=== PATIENT | male | born 2000 | race American Indian/Alaskan Native ===

== ENCOUNTER 2021-12-29 12:57 | Emergency (ER) | payer MEDICAID, OTHER ==
[2021-12-29 13:05] VITALS: BP 162/93
[2021-12-29] MEDS ORDERED: TETANUS/DIPHTHERIA/PERTUSSIS 0.5 ML SYRINGE IM ONE (13:17)
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
== END 2021-12-29 14:44 | disposition home or self-care (01) ==
LOC: ED 12:57
DX: S00.33XA Contusion of nose, initial encounter (principal); Y04.2XXA Assault by strike against or bumped into by another person, initial encounter; R04.0 Epistaxis; Z23 Encounter for immunization; Z71.85 Encounter for immunization safety counseling
CPT/HCPCS: 90471; 99282; 99284

== ENCOUNTER 2022-05-06 22:24 | Emergency (ER) | payer MEDICAID, OTHER ==
[2022-05-06] MEDS ORDERED: BACITRACIN ZINC OINT 1 PACKET TOP STA (23:32)
[2022-05-06] MEDS ORDERED: cephALEXin 250 MG CAPSULE PO STA (23:34)
--- NOTE | 2022-05-06 23:39 | ED Physician Documentation ---
PD HPI UPPER EXT INJURY - Stated complaint Stated Complaint: R FINGER INJ - Chief complaint Chief Complaint: Laceration - History obtained from History obtained from: Patient, Family - Additonal information Additional information: The patient comes to the emergency department chief complaint of right ring finger pain and swelling after injury. He states that 3 days ago, he smashed the end of his finger in a old ramp. He noticed that the skin had split open, but thought that it would heal on its own and decided not to seek medical attention. However, the fingers become increasingly swollen and the wound keeps bleeding and so he decided to come get it checked out. He is not sure when his last tetanus shot was. He describes moderate pain. No other complaints at this time. Review of Systems Ten Systems: 10 systems reviewed and negative Constitutional: reports: Reviewed and negative Eyes: reports: Reviewed and negative Ears: reports: Reviewed and negative Nose: reports: Reviewed and negative Throat: reports: Reviewed and negative Cardiac: reports: Reviewed and negative Respiratory: reports: Reviewed and negative GI: reports: Reviewed and negative : reports: Reviewed and negative Skin: reports: Laceration (s) Musculoskeletal: reports: Extremity pain, Extremity swelling Neurologic: reports: Reviewed and negative Psychiatric: reports: Reviewed and negative Endocrine: reports: Reviewed and negative Immunocompromised: reports: Reviewed and negative PD PAST MEDICAL HISTORY - Present Medications Home Medications: Ambulatory Orders Medication Instructions Recorded Confirmed cephALEXin [Keflex] 500 mg PO Q6H #28 cap 05/06/22 - Allergies Allergies/Adverse Reactions: Allergies Allergy/AdvReac Type Severity Reaction Status Date / Time No Known Drug Allergies Allergy Verified 05/06/22 22:35 PD ED PE NORMAL - Vitals Vital signs reviewed: Yes - General General: Alert and oriented X 3, No acute distress, Well developed/nourished - HEENT HEENT: Atraumatic, PERRL, EOMI, Moist mucous membranes - Neck Neck: Supple, no meningeal sign - Cardiac Cardiac: Strong equal pulses - Respiratory Respiratory: No respiratory distress - Derm Derm: Normal color, Warm and dry, No rash, Other (1.5 cm vertical laceration/skin tear over right ring finger tip and pad. No bony fragments in wound. No active bleeding. No nail or nailbed involvement) - Extremities Extremities: No deformity, Other (Moderate edema distal right ring finger. No deformity. Flexion to intact at DIP joint.) - Neuro Neuro: Alert and oriented X 3 - Psych Psych: Normal mood, Normal affect Results - Vitals Vitals: Vital Signs - 24 hr 05/06/22 05/06/22 22:29 23:59 Temperature 36.5 C Heart Rate 66 80 Respiratory 20 17 Rate Blood Pressure 150/91 H 136/80 H O2 Saturation 100 100 Oxygen O2 Source Room air - Rads (name of study) Right hand x-ray series Radiology: Final report received, EMP read indepedently, See rad report (Tuft fracture ring finger) PD MEDICAL DECISION MAKING - ED course Complexity details: reviewed results, re-evaluated patient, considered differential, d/w patient ED course: I discussed with the patient that his x-ray did demonstrate a tuft fracture. Unfortunately, because he has waited 3 days to come in, his laceration is no longer suturable. However, the area does not appear infected and so we will wash and dress the wound. Patient has been placed in a splint and started on antibiotics for open fracture. We have discussed the need for follow-up, continuing antibiotics prophylactically, and the usual indications for return and follow-up. Departure - Departure Disposition: 01 Home, Self Care Clinical Impression: Laceration, Open fracture of tuft of distal phalanx of finger Condition: Stable Instructions: ED Fx Finger Open Prescriptions: cephALEXin [Keflex] 500 mg PO Q6H #28 cap Comments: Unfortunately, you have broken the tip of the last bone of your finger into several small pieces. The good news is that these fractures tend to heal well with simple splinting. You are out of the window for repair of the overlying cut, as it has been more than 24 hours. Because this overlies a broken bone, you will also need to be on antibiotics to prevent infection from setting into the bone. 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 There is no evidence of infection of the flash around the cut at this time. Please continue to keep the wound clean and dry. You have been placed in a splint to help your fracture heal better. To help reduce the swelling, you should prop your hand up whenever possible and avoid letting it hang down, as this will worsen the swelling. You may also apply ice pack several times a day for 20 to 30 minutes at a time. Your tetanus shot was actually updated last year, so you will not need another one for the next 8-9 years. Please follow-up with your doctor to have your finger rechecked in a couple of weeks. You will need to wear the splint at least until then. Avoid any strenuous activities with the hand until the finger is out of the splint. Forms: Activity restrictions Discharge Date/Time: 05/07/22 00:00
--- NOTE | 2022-05-06 23:49 | XRAY Report ---
PROCEDURE: Finger(s) RT INDICATIONS: Injury TECHNIQUE: AP hand, 2 views of the fourth digit acquired. COMPARISON: None. FINDINGS: Bones: There is a mildly comminuted fracture of the fourth distal phalanx. No dislocations. Soft tissues: There is a soft tissue laceration of the distal fourth digit. No suspicious soft tissu e calcifications. IMPRESSION: 1. Mildly comminuted fracture of the fourth distal phalanx. Reviewed by: Chino Rivera MD on 05/06/2022 11:47 PM PDT Approved by: Chino Rivera MD on 05/06/2022 11:47 PM PDT Station ID: [id number]
[2022-05-06 23:59] VITALS: BP 136/80
== END 2022-05-07 | disposition home or self-care (01) ==
LOC: ED 22:24
DX: S62.634B Displaced fracture of distal phalanx of right ring finger, initial encounter for open fracture (principal); X58.XXXA Exposure to other specified factors, initial encounter
CPT/HCPCS: 73140; 99283; 99284; A9270

== ENCOUNTER 2023-11-20 09:41 | Emergency (ER) | payer MEDICAID ==
[2023-11-20 10:03] VITALS: BP 146/93; O2SAT 98
--- NOTE | 2023-11-20 11:33 | ED Physician Documentation ---
PD HPI HEENT - Stated complaint Stated Complaint: SORE THROAT - Chief complaint Chief Complaint: Heent - Additional information Additional information: 23 yo male reports he does not think he had childhood vaccines presents to ER for sore throat. Pt repots he has not been feeling weel for 2-3 days now and feels like his sore throat is not getting any better. He has taken Nyquil at night and has not had significant amount of relief with this. Patient is in no acute respiratory distress he is able to speak in full sentences. He reports at times he has more difficulty with breathing than he does normally at baseline denies any history of asthma or respiratory diseases. He says that he has been able to feel his forehead and thinks that he has been having fevers at home but has not taken his temperature. No nausea vomiting or diarrhea. PD PAST MEDICAL HISTORY - Past Medical History Past Medical History: No - Past Surgical History Past Surgical History: No - Present Medications Home Medications: Ambulatory Orders Medication Instructions Recorded Confirmed No Known Home Medications 11/20/23 11/20/23 - Allergies Allergies/Adverse Reactions: Allergies Allergy/AdvReac Type Severity Reaction Status Date / Time No Known Drug Allergies Allergy Verified 05/06/22 22:35 - Social History Does the pt smoke?: No Smoking Status: Never smoker PD ED PE NORMAL - Vitals Vital signs reviewed: Yes - General General: Alert and oriented X 3 - HEENT HEENT: Moist mucous membranes, Other (no throat swelling, tonsils 0, no exudate, pharyngeal erythema, no abscess) - Neck Neck: Thyroid normal - Cardiac Cardiac: RRR - Respiratory Respiratory: No respiratory distress, Clear bilaterally - Derm Derm: Normal color, Warm and dry - Neuro Neuro: Alert and oriented X 3 Eye Opening: Spontaneous Motor: Obeys Commands Verbal: Oriented GCS Score: 15 - Psych Psych: Normal mood Results - Vitals Vitals: Vital Signs - 24 hr 11/20/23 09:54 Temperature 36.7 C Heart Rate 58 L Respiratory 16 Rate Blood Pressure 146/93 H O2 Saturation 98 Oxygen O2 Source Room air - Labs Labs: Laboratory Tests 11/20/23 11/20/23 11:29 11:29 Nasal Adenovirus (PCR) NOT DETECTED Nasal B. parapertussis DNA (PCR) NOT DETECTED Nasal Coronavir 229E PCR NOT DETECTED Nasal Coronavir HKU1 PCR NOT DETECTED Nasal Coronavir NL63 PCR NOT DETECTED Nasal Coronavir OC43 PCR NOT DETECTED Nasal Enterovir/Rhinovir PCR NOT DETECTED Nasal Influenza B PCR NOT DETECTED Nasal Influenza A PCR NOT DETECTED Nasal Parainfluen 1 PCR NOT DETECTED Nasal Parainfluen 2 PCR NOT DETECTED Nasal Parainfluen 3 PCR NOT DETECTED Nasal Parainfluen 4 PCR NOT DETECTED Nasal RSV (PCR) NOT DETECTED Nasal B.pertussis DNA PCR NOT DETECTED Nasal C.pneumoniae (PCR) NOT DETECTED Parveen Human Metapneumo PCR NOT DETECTED Nasal M.pneumoniae (PCR) NOT DETECTED Nasal SARS-CoV-2 (PCR) DETECTED A Group A Strep Rapid Negative PD Medical Decision Making - ED course ED course: No history of immunocompromise. Nontoxic appearance. Patient euvolemic with no trismus. No airway compromise. No change in voice, exudates, enlarged lymph nodes. Able to tolerate PO. 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 Patient was found to have COVID-19 he was called and notified about these results was given return precautions and instructions on how to care for self at home and how long to isolate for. Departure - Departure Disposition: Home, Self Care Clinical Impression: Sore throat (viral) Condition: Good Instructions: Sore Throats Self Care, Cold Virus Comments: Thank you for trusting us with your care we have completed a rapid group A strep which was negative for strep. We have sent your throat cultures for further evaluation to the lab we will call you in the next 3 to 4 days if this comes back positive. At home alternate between Tylenol and ibuprofen for pain and discomfort you can have up to 1000 mg of Tylenol every 8 hours and up to 600 mg of ibuprofen every 6 hours. Some people like liquid children's ibuprofen to gargle with to help with throat pain and swelling just make sure that you are not doing that on top of the ibuprofen pills and you are keeping track of the dosage and the amount of ibuprofen you are taking. You can also do things like salt water gargle rinses and honey to help with your sore throat. We will call you if your respiratory panel comes back with any positive viruses but most likely you are experiencing some sort of upper respiratory infection virus which will take time to resolve and clear up on its own. Please come back to the emergency department for having any worsening shortness of breath, difficulty breathing, worsening throat pain over the next couple days despite the Tylenol and ibuprofen, chest pain, or any other concerning symptoms. Wishing you a speedy recovery Forms: PCP List Discharge Date/Time: 11/20/23 12:23
[2023-11-20] MEDS: IBUPROFEN 200 MG/10 ML UDC PO STA (11:46)
[2023-11-20] MEDS: ACETAMINOPHEN 325 MG TABLET PO STA (11:47)
[2023-11-20] MEDS: DEXAMETHASONE 10 MG/ML VIAL PO STA (11:48)
[2023-11-20] MEDS: CHERRY SYRUP 10 ML UDC PO ONE (11:49)
[2023-11-20 11:53] LABS: RAPID STREP SCREEN Negative (Negative)
[2023-11-20 12:39] LABS: B. PARAPERTUSSIS- RESP PCR PAN NOT DETECTED; B. PERTUSSIS- RESP PCR PANEL NOT DETECTED; C. PNEUMONIAE- RESP PCR PANEL NOT DETECTED; CORONAVIRUS 229E-RESP PCR NOT DETECTED; CORONAVIRUS HKU1-RESP PCR NOT DETECTED; CORONAVIRUS NL63-RESP PCR NOT DETECTED; CORONAVIRUS OC43-RESP PCR NOT DETECTED; HUMAN METAPNEUMOVIRUS NOT DETECTED; INFLUENZA A- RESP PCR PANEL NOT DETECTED; INFLUENZA B - RESP PCR PANEL NOT DETECTED; M. PNEUMONIAE- RESP PCR PANEL NOT DETECTED; PARAINFLUENZA VIRUS 1 NOT DETECTED; PARAINFLUENZA VIRUS 2 NOT DETECTED; PARAINFLUENZA VIRUS 3 NOT DETECTED; PARAINFLUENZA VIRUS 4 NOT DETECTED; RHINOVIRUS/ENTEROVIRUS NOT DETECTED; RSV- RESP PCR PANEL NOT DETECTED
[2023-11-20 12:42] LABS: SARS-CoV-2 -RESP PCR PANEL DETECTED
== END 2023-11-20 12:23 | disposition home or self-care (01) ==
LOC: ED 09:41
DX: U07.1 COVID-19 (principal); J02.8 Acute pharyngitis due to other specified organisms
CPT/HCPCS: 87070; 87430; 87633; 99283; A9270

== ENCOUNTER 2023-11-24 10:37 | Emergency (ER) | payer MEDICAID ==
[2023-11-24 10:46] VITALS: BP 141/97; O2SAT 98
--- NOTE | 2023-11-24 11:18 | ED Physician Documentation ---
History of Present Illness - Stated complaint Stated Complaint: C+ - Chief complaint Chief Complaint: General - History obtained from History obtained from: Patient - Additonal information Additional information: Patient is a 23-year-old male presenting for a COVID test. Patient was here on November 20 with a sore throat and tested positive for COVID. He states he needs another COVID test to go back to work. When asked further questions about this he states that his mother actually told him to come get another test to see if he can go back to work. Patient states he has no symptoms. He is unsure what his employer requires for him to go back to work. Review of Systems Constitutional: denies: Fever Throat: denies: Sore throat Respiratory: denies: Dyspnea, Cough GI: denies: Vomiting PD PAST MEDICAL HISTORY - Past Surgical History Past Surgical History: No - Present Medications Home Medications: Ambulatory Orders Medication Instructions Recorded Confirmed No Known Home Medications 11/20/23 11/24/23 - Allergies Allergies/Adverse Reactions: Allergies Allergy/AdvReac Type Severity Reaction Status Date / Time No Known Drug Allergies Allergy Verified 11/24/23 10:45 - Social History Does the pt smoke?: No Smoking Status: Never smoker PD ED PE NORMAL - General General: Alert and oriented X 3, No acute distress, Well developed/nourished - HEENT HEENT: Atraumatic - Neck Neck: Supple, no meningeal sign - Cardiac Cardiac: RRR, Strong equal pulses - Respiratory Respiratory: No respiratory distress, Clear bilaterally - Derm Derm: Warm and dry - Neuro Neuro: Normal speech Results - Vitals Vitals: Vital Signs - 24 hr 11/24/23 10:44 Temperature 36.7 C Heart Rate 75 Respiratory 15 Rate Blood Pressure 141/97 H O2 Saturation 98 Oxygen O2 Source Room air - Labs Labs: Laboratory Tests 11/24/23 10:49 Nasal Adenovirus (PCR) NOT DETECTED Nasal B. parapertussis DNA (PCR) NOT DETECTED Nasal Coronavir 229E PCR NOT DETECTED Nasal Coronavir HKU1 PCR NOT DETECTED Nasal Coronavir NL63 PCR NOT DETECTED Nasal Coronavir OC43 PCR NOT DETECTED Nasal Enterovir/Rhinovir PCR NOT DETECTED Nasal Influenza B PCR NOT DETECTED Nasal Influenza A PCR NOT DETECTED Nasal Parainfluen 1 PCR NOT DETECTED Nasal Parainfluen 2 PCR NOT DETECTED Nasal Parainfluen 3 PCR NOT DETECTED Nasal Parainfluen 4 PCR NOT DETECTED Nasal RSV (PCR) NOT DETECTED Nasal B.pertussis DNA PCR NOT DETECTED Nasal C.pneumoniae (PCR) NOT DETECTED Parveen Human Metapneumo PCR NOT DETECTED Nasal M.pneumoniae (PCR) NOT DETECTED Nasal SARS-CoV-2 (PCR) DETECTED A PD Medical Decision Making - ED course ED course: Patient is a 23-year-old with recent diagnosis of COVID presenting for another test so that he can return back to work. I explained that based on his CDC guidelines he is okay to go back to work after today. I also explained the difference between PCR testing and antigen testing. Explained that we only have PCR testing available here and that can be positive for a long time after an infection but does not necessarily indicate that he has an active COVID infection.Respiratory swab was already obtained by leather goods i assembler prior to my evaluation of the patient and sent.Patient counseled on quarantine. As well as concerning symptoms to return for. Departure - Departure Disposition: 01 Home, Self Care Clinical Impression: Educated about COVID-19 virus infection Condition: Stable Comments: Based on the CDC guidelines You should be okay to return to work on 11/25/2023. The testing we offer in the emergency department is a PCR test for COVID which can remain positive for a long time after your infection. Therefore the swab that was done at triage may still be positive but this does not mean that you still have an active COVID infection. We do not offer an antigen test which checks for active infection. Forms: PCP List Discharge Date/Time: 11/24/23 11:23
[2023-11-24 11:50] LABS: B. PARAPERTUSSIS- RESP PCR PAN NOT DETECTED; B. PERTUSSIS- RESP PCR PANEL NOT DETECTED; C. PNEUMONIAE- RESP PCR PANEL NOT DETECTED; CORONAVIRUS 229E-RESP PCR NOT DETECTED; CORONAVIRUS HKU1-RESP PCR NOT DETECTED; CORONAVIRUS NL63-RESP PCR NOT DETECTED; CORONAVIRUS OC43-RESP PCR NOT DETECTED; HUMAN METAPNEUMOVIRUS NOT DETECTED; INFLUENZA A- RESP PCR PANEL NOT DETECTED; INFLUENZA B - RESP PCR PANEL NOT DETECTED; M. PNEUMONIAE- RESP PCR PANEL NOT DETECTED; PARAINFLUENZA VIRUS 1 NOT DETECTED; PARAINFLUENZA VIRUS 2 NOT DETECTED; PARAINFLUENZA VIRUS 3 NOT DETECTED; PARAINFLUENZA VIRUS 4 NOT DETECTED; RHINOVIRUS/ENTEROVIRUS NOT DETECTED; RSV- RESP PCR PANEL NOT DETECTED
[2023-11-24 11:54] LABS: SARS-CoV-2 -RESP PCR PANEL DETECTED
== END 2023-11-24 11:23 | disposition home or self-care (01) ==
LOC: ED 10:37
DX: U07.1 COVID-19 (principal)
CPT/HCPCS: 87633; 99282; 99283